=== PATIENT | female | born 1940 | race Caucasian/White ===

== ENCOUNTER 2017-09-08 09:57 | Outpatient (CLI) | payer MEDICARE ==
[~2017-09-08 09:57] MED LIST: BUPR100T13 PO; DOXA2TAB2 PO; ESCI20TA38 PO; GLIM1TAB46 PO; GLIM4TAB79 PO; LINA5TAB4 PO; LORA1TAB PO; LOSA1TAB41 PO; PANT-47 PO; SIMV20TA5 PO
[2017-09-08 10:51] LABS: ALBUMIN 3.4 G/DL (3.4-5.0); ANION GAP 11 (8-16); BLOOD UREA NITROGEN 17 MG/DL (7-18); CALCIUM 9.1 MG/DL (8.5-10.1); CHLORIDE 101 MMOL/L (99-107); CREATININE 1.13 MG/DL (0.40-0.90); GLUCOSE 284 MG/DL (70-104); SODIUM 137 MMOL/L (135-145); TOTAL CARBON DIOXIDE 25.2 MMOL/L (24-32); eGFR 47 ML/MIN
[2017-09-08 11:05] LABS: POTASSIUM 2.5 MMOL/L (3.5-5.1)
[2017-09-08] MEDS ORDERED: ONDA4TAB9 PO (18:22)
[2017-09-08] MEDS ORDERED: OXYC-145 PO (18:22)
== END 2017-09-08 23:59 | disposition home or self-care (01) ==
LOC: LAB 09:57
PROVIDERS: ATTEND Internal Medicine Gastroenterology
DX: R10.9 Unspecified abdominal pain (principal); I10 Essential (primary) hypertension; E11.9 Type 2 diabetes mellitus without complications; Z88.2 Allergy status to sulfonamides; Z88.5 Allergy status to narcotic agent
CPT/HCPCS: 36415; 80048

== ENCOUNTER 2017-09-08 14:36 | Emergency (ER) | payer MEDICARE ==
[~2017-09-08] VITALS: Ht 152.4 cm; Wt 58.6 kg
[2017-09-08] MEDS ORDERED: potassium Cl oral solution 20 MEQ/15 ML PO ONE (15:25)
[2017-09-08] MEDS ORDERED: normal saline 1000ML IV soln IVB ONE (15:25)
[2017-09-08] MEDS ORDERED: potassium Cl 20 mEq/100mL bag IV ONE (15:35)
[2017-09-08] MEDS: potassium 10mEq/100ml NS w/LIDOcaine (10mg/bag) IV SCH ×2 (15:46→16:40)
[2017-09-08] MEDS: diatr meglu/diatrizoate 30ml oral sol.-(3 dose) bottle PO SCH ×3 (15:48→17:21)
[2017-09-08 15:50] LABS: BASOPHILS % (AUTO) 0.5 % (0-1); EOSINOPHILS # (AUTO) 0.2 X10'3 (0-0.9); EOSINOPHILS % (AUTO) 2.9 % (0-6); HEMATOCRIT 31.5 % (35.0-45.0); HEMOGLOBIN 10.4 g/dl (12.0-16.0); LYMPHOCYTES # (AUTO) 1.7 X10'3 (1.1-4.8); LYMPHOCYTES % (AUTO) 24.6 % (21-51); MEAN CORPUSCULAR HEMOGLOBIN 26.6 PG (27.0-31.0); MEAN CORPUSCULAR HGB CONC 32.9 % (33.0-36.5); MEAN CORPUSCULAR VOLUME 80.8 FL (78-98); MONOCYTES # (AUTO) 0.7 X10'3 (0-0.9); MONOCYTES % (AUTO) 10.1 % (2-12); NEUTROPHILS # (AUTO) 4.2 X10'3 (1.8-7.7); NEUTROPHILS % (AUTO) 61.9 % (42-75); PLATELET COUNT 289 X10'3 (140-440); RED CELL DISTRIBUTION WIDTH 19.6 % (11.5-14.5); WHITE BLOOD COUNT 6.7 X10'3 (4.5-11.0)
[2017-09-08 16:01] LABS: ALANINE AMINOTRANSFERASE 197 U/L (12-78); ALBUMIN 3.6 G/DL (3.4-5.0); ALBUMIN/GLOBULIN RATIO 0.9 (1.1-1.5); ALKALINE PHOSPHATASE 526 IU/L (46-116); ANION GAP 11 (8-16); ASPARTATE AMINO TRANSFERASE 127 U/L (10-37); BLOOD UREA NITROGEN 22 MG/DL (7-18); BUN/CREATININE RATIO 16.4 (6.6-38.0); CALCIUM 9.5 MG/DL (8.5-10.1); CHLORIDE 101 MMOL/L (99-107); CREATININE 1.34 MG/DL (0.40-0.90); GLUCOSE 180 MG/DL (70-104); LIPASE 92 U/L (73-393); SODIUM 137 MMOL/L (135-145); TOTAL CARBON DIOXIDE 24.7 MMOL/L (24-32); TOTAL PROTEIN 7.7 G/DL (6.4-8.2); eGFR 38 ML/MIN
[2017-09-08 16:02] LABS: POTASSIUM 2.7 MMOL/L (3.5-5.1)
[2017-09-08 16:24] LABS: ANISOCYTOSIS 2+; BURR CELLS FEW; PLATELET ESTIMATE NORMAL; POLYCHROMASIA FEW; SCHISTOCYTES FEW
[2017-09-08 17:23] LABS: CLARITY,URINE CLOUDY (Clear); COLOR,URINE YELLOW (Yellow); GLUCOSE, URINE NEGATIVE (Neg); KETONES,URINE NEGATIVE (Neg); LEUKOCYTE ESTERASE ,URINE NEGATIVE (Neg); NITRITES, URINE NEGATIVE (Neg); OCCULT BLOOD,URINE NEGATIVE (Neg); PH,URINE 5.5 (4.8-8.0); PROTEIN,URINE NEGATIVE (Neg); UROBILINOGEN,URINE 0.2 E.U/dL (0.2-1.0)
[2017-09-08 17:24] LABS: UA COLLECTION TYPE CLN CATCH MIDSTREAM
[2017-09-08 17:30] LABS: MUCUS STRANDS MODERATE /LPF (Neg); SQUAMOUS EPITHELIAL CELL,UR MANY /LPF (FEW)
[2017-09-08 17:31] LABS: CAL OXALATE CRYSTALS 2+ /HPF (NEGATIVE); HYALINE CASTS >30 /LPF (NEGATIVE)
[2017-09-08 17:34] LABS: FINE GRANULAR CAST 0-3 /LPF (NEGATIVE); RENAL CELLS, URINE FEW /HPF; TRANSITIONAL EPI CELLS,URINE FEW /HPF
[2017-09-08 17:35] LABS: BACTERIA,URINE 1+ /HPF (Neg); RBC,URINE 0-2 /HPF (0-2); WBC,URINE 0-4 /HPF (0-4)
[2017-09-08] MEDS ORDERED: OXYC-145 PO (18:22)
[2017-09-08] MEDS ORDERED: ONDA4TAB9 PO (18:22)
[2017-09-08] MEDS ORDERED: morphine 4 MG/ML inj SYRINge IV ONE (18:30)
[2017-09-08] MEDS ORDERED: ketorolac trometh. 30mg/ml inj. IV ONE (18:30)
[2017-09-08] MEDS ORDERED: ondansetron/PF 4mg/2ml inj IV ONE (18:30)
[2017-09-08 18:58] VITALS: BP 180/74
== END 2017-09-08 19:07 | disposition home or self-care (01) ==
LOC: ER 14:37
DX: C25.9 Malignant neoplasm of pancreas, unspecified (principal); C78.7 Secondary malignant neoplasm of liver and intrahepatic bile duct; E87.6 Hypokalemia; K57.30 Diverticulosis of large intestine without perforation or abscess without bleeding; K44.9 Diaphragmatic hernia without obstruction or gangrene; I10 Essential (primary) hypertension; E11.9 Type 2 diabetes mellitus without complications; Z88.2 Allergy status to sulfonamides; Z88.5 Allergy status to narcotic agent; Z79.899 Other long term (current) drug therapy
CPT/HCPCS: 36415; 74177; 80053; 81001; 83690; 85025; 96365; 96366; 96375; 99285; J1885; J2270; J2405; J3480; J7030; Q9963

== ENCOUNTER 2017-09-09 08:00 | Outpatient (CLI) | payer MEDICARE ==
[~2017-09-09 08:00] MED LIST changes: +ONDA4TAB9 PO; +OXYC-145 PO; +iohexol 300mg/ml 100ml inj. ONE
== END 2017-09-09 23:59 | disposition home or self-care (01) ==
LOC: 64 CT 08:00
PROVIDERS: ATTEND Internal Medicine Gastroenterology
DX: R10.9 Unspecified abdominal pain (principal)
CPT/HCPCS: J7030; Q9967

== ENCOUNTER 2017-09-30 12:35 | Day surgery (SDC) | payer MEDICARE ==
[~2017-09-30] VITALS: Ht 152.4 cm; Wt 55.5 kg
[2017-09-30] VITALS (9 sets, daily range): BP systolic 139–173; BP diastolic 68–78
[~2017-09-30 12:35] MED LIST changes: -iohexol 300mg/ml 100ml inj. ONE
[2017-09-30] MEDS ORDERED: LOSA25TA96 PO (12:46)
[2017-09-30] MEDS ORDERED: PANT-47 PO (12:47)
[2017-09-30] MEDS ORDERED: meperidine/PF 100mg/ml syringe ONE (12:53)
[2017-09-30] MEDS ORDERED: fentaNYL/PF 50MCG/1 ML 2ML syringe ONE (12:53)
[2017-09-30] MEDS ORDERED: glucagon, human recombinant 1mg kit ONE (12:54)
[2017-09-30] MEDS ORDERED: LIDOcaine Viscous 15ml cup ONE (12:54)
[2017-09-30] MEDS ORDERED: levoFLOXACIN-Levaquin 500mg/D5 0 ML IV ONE (12:54)
[2017-09-30] MEDS ORDERED: diphenhydrAMINE 50 mg/ml inj ONE (12:54)
[2017-09-30] MEDS ORDERED: MIDAZolam 5mg/5ml vial ONE (12:54)
[2017-09-30] MEDS ORDERED: iohexol 300 MG/1 ML 50ml polymer ONE (12:55)
== END 2017-09-30 17:00 | disposition home or self-care (01) ==
LOC: GI LAB 12:35
PROVIDERS: ATTEND Internal Medicine Gastroenterology
DX: D49.0 Neoplasm of unspecified behavior of digestive system (principal); K83.8 Other specified diseases of biliary tract; E11.9 Type 2 diabetes mellitus without complications; I10 Essential (primary) hypertension; M19.90 Unspecified osteoarthritis, unspecified site; F32.9 Major depressive disorder, single episode, unspecified; E78.5 Hyperlipidemia, unspecified; Z79.82 Long term (current) use of aspirin; Z88.2 Allergy status to sulfonamides; Z88.5 Allergy status to narcotic agent; Z88.6 Allergy status to analgesic agent; Z85.828 Personal history of other malignant neoplasm of skin; Z85.07 Personal history of malignant neoplasm of pancreas; Z98.890 Other specified postprocedural states; Z79.899 Other long term (current) drug therapy; R17 Unspecified jaundice
CPT/HCPCS: 43260; 99153; G0500; J1610; J2250; J3010; J7030; Q9967; A4620; J1200; J1956; J2175

== ENCOUNTER 2017-10-14 08:50 | Day surgery (SDC) | payer MEDICARE ==
[~2017-10-14] VITALS: Ht 152.4 cm; Wt 55.0 kg
[~2017-10-14 08:50] MED LIST changes: -GLIM1TAB46 PO; -LOSA1TAB41 PO; +LOSA25TA96 PO; -ONDA4TAB9 PO; -OXYC-145 PO
[2017-10-14 09:58] LABS: INR 2.9 INR; PROTHROMBIN TIME 29.3 SECONDS (9.0-12.0)
[2017-10-14] MEDS ORDERED: normal saline 1000ml 1,000 ML IV PRN (10:05)
== END 2017-10-14 11:20 | disposition home or self-care (01) ==
LOC: RAD 08:50
PROVIDERS: ATTEND Radiology Diagnostic Radiology
DX: K82.4 Cholesterolosis of gallbladder (principal); Z53.8 Procedure and treatment not carried out for other reasons; K86.89 Other specified diseases of pancreas; C22.9 Malignant neoplasm of liver, not specified as primary or secondary; Z88.5 Allergy status to narcotic agent; Z88.2 Allergy status to sulfonamides; Z79.899 Other long term (current) drug therapy
CPT/HCPCS: 36415; 76700; 85610; J7030

== ENCOUNTER 2017-11-03 09:53 | Outpatient (CLI) | payer MEDICARE ==
[2017-11-03 10:11] LABS: ALANINE AMINOTRANSFERASE 109 U/L (12-78); ALBUMIN 2.4 G/DL (3.4-5.0); ALKALINE PHOSPHATASE 546 IU/L (46-116); ANION GAP 9 (8-16); BILIRUBIN,TOTAL 14.1 MG/DL (0.1-1.0); BLOOD UREA NITROGEN 42 MG/DL (7-18); BUN/CREATININE RATIO 17.5 (6.6-38.0); CALCIUM 8.5 MG/DL (8.5-10.1); CHLORIDE 79 MMOL/L (99-107); SODIUM 125 MMOL/L (135-145); TOTAL CARBON DIOXIDE 37.5 MMOL/L (24-32); eGFR 20 ML/MIN
[2017-11-03 10:12] LABS: ALBUMIN/GLOBULIN RATIO 0.7 (1.1-1.5); ASPARTATE AMINO TRANSFERASE 130 U/L (10-37); GLUCOSE 134 MG/DL (70-104)
[2017-11-03 10:27] LABS: POTASSIUM 2.8 MMOL/L (3.5-5.1)
[2017-11-03] MEDS ORDERED: POTA20TA19 PO (14:13)
== END 2017-11-03 23:59 | disposition home or self-care (01) ==
LOC: LAB SPEC 09:53
PROVIDERS: ATTEND Internal Medicine Hematology & Oncology
DX: C25.9 Malignant neoplasm of pancreas, unspecified (principal); R11.2 Nausea with vomiting, unspecified; G89.3 Neoplasm related pain (acute) (chronic); I10 Essential (primary) hypertension; E11.9 Type 2 diabetes mellitus without complications; Z90.710 Acquired absence of both cervix and uterus
CPT/HCPCS: 36415; 80053

== ENCOUNTER 2017-11-03 11:56 | Emergency (ER) | payer MEDICARE ==
[~2017-11-03] VITALS: Ht 152.4 cm; Wt 50.0 kg
[2017-11-03] MEDS ORDERED: normal saline 1000ML IV soln IVB ONE ×2 (12:30→14:10)
[2017-11-03] MEDS ORDERED: potassium Cl 20 mEq SR tablet PO ONE (12:30)
[2017-11-03 12:50] LABS: BASOPHILS % (AUTO) 0.1 % (0-1); EOSINOPHILS # (AUTO) 0.1 X10'3 (0-0.9); EOSINOPHILS % (AUTO) 0.8 % (0-6); HEMATOCRIT 29.5 % (35.0-45.0); HEMOGLOBIN 10.2 g/dl (12.0-16.0); LYMPHOCYTES # (AUTO) 1.4 X10'3 (1.1-4.8); LYMPHOCYTES % (AUTO) 14.2 % (21-51); MEAN CORPUSCULAR HEMOGLOBIN 28.9 PG (27.0-31.0); MEAN CORPUSCULAR HGB CONC 34.6 % (33.0-36.5); MEAN CORPUSCULAR VOLUME 83.6 FL (78-98); MEAN PLATELET VOLUME 8.1 FL (7.4-10.4); MONOCYTES # (AUTO) 0.4 X10'3 (0-0.9); MONOCYTES % (AUTO) 4.3 % (2-12); NEUTROPHILS # (AUTO) 7.7 X10'3 (1.8-7.7); NEUTROPHILS % (AUTO) 80.6 % (42-75); PLATELET COUNT 366 X10'3 (140-440); RED BLOOD COUNT 3.53 X10'6 (4.20-5.60); RED CELL DISTRIBUTION WIDTH 20.4 % (11.5-14.5); WHITE BLOOD COUNT 9.6 X10'3 (4.5-11.0)
[2017-11-03 13:03] LABS: ANISOCYTOSIS 2+; MICROCYTOSIS 1+; PLATELET ESTIMATE NORMAL
[2017-11-03 13:10] LABS: ALANINE AMINOTRANSFERASE 101 U/L (12-78); ALBUMIN 2.3 G/DL (3.4-5.0); ALKALINE PHOSPHATASE 496 IU/L (46-116); ANION GAP 8 (8-16); ASPARTATE AMINO TRANSFERASE 121 U/L (10-37); BLOOD UREA NITROGEN 44 MG/DL (7-18); BUN/CREATININE RATIO 16.5 (6.6-38.0); CALCIUM 8.8 MG/DL (8.5-10.1); CHLORIDE 80 MMOL/L (99-107); CREATININE 2.66 MG/DL (0.40-0.90); GLUCOSE 113 MG/DL (70-104); SODIUM 125 MMOL/L (135-145); TOTAL CARBON DIOXIDE 36.9 MMOL/L (24-32); eGFR 17 ML/MIN
[2017-11-03 13:11] LABS: ALBUMIN/GLOBULIN RATIO 0.5 (1.1-1.5); TOTAL PROTEIN 6.5 G/DL (6.4-8.2)
[2017-11-03 13:15] LABS: POTASSIUM 2.5 MMOL/L (3.5-5.1)
[2017-11-03] MEDS: potassium 10mEq/100ml NS w/LIDOcaine (10mg/bag) IV SCH ×2 (13:22→14:24)
[2017-11-03] MEDS ORDERED: POTA20TA19 PO (14:13)
[2017-11-03 14:19] LABS: MAGNESIUM 2.3 MG/DL (1.5-2.4)
[2017-11-03 15:53] VITALS: BP 141/81
== END 2017-11-03 15:55 | disposition home or self-care (01) ==
LOC: ER 11:57
DX: E87.6 Hypokalemia (principal); E86.0 Dehydration; I10 Essential (primary) hypertension; E11.9 Type 2 diabetes mellitus without complications; Z88.2 Allergy status to sulfonamides; Z88.5 Allergy status to narcotic agent; Z79.899 Other long term (current) drug therapy
CPT/HCPCS: 36415; 80053; 83735; 85025; 96365; 99284; J3480; J7030

== ENCOUNTER 2017-11-05 10:44 | Emergency (ER) | payer MEDICARE ==
[~2017-11-05] VITALS: Ht 152.4 cm; Wt 50.0 kg
[~2017-11-05 10:44] MED LIST changes: +POTA20TA19 PO
[2017-11-05] MEDS ORDERED: normal saline 1000ML IV soln IV ONE (11:30)
[2017-11-05] MEDS ORDERED: metoclopramide 5 mg/ml inj IV ONE (11:40)
[2017-11-05 12:16] LABS: BASOPHILS % (AUTO) 0 % (0-1); EOSINOPHILS % (AUTO) 0.2 % (0-6); HEMATOCRIT 30.1 % (35.0-45.0); HEMOGLOBIN 10.3 g/dl (12.0-16.0); LYMPHOCYTES # (AUTO) 0.7 X10'3 (1.1-4.8); LYMPHOCYTES % (AUTO) 8.9 % (21-51); MEAN CORPUSCULAR HGB CONC 34.2 % (33.0-36.5); MEAN CORPUSCULAR VOLUME 84.6 FL (78-98); MEAN PLATELET VOLUME 8.2 FL (7.4-10.4); MONOCYTES # (AUTO) 0.4 X10'3 (0-0.9); MONOCYTES % (AUTO) 5.5 % (2-12); NEUTROPHILS # (AUTO) 6.7 X10'3 (1.8-7.7); NEUTROPHILS % (AUTO) 85.4 % (42-75); PLATELET COUNT 404 X10'3 (140-440); RED BLOOD COUNT 3.56 X10'6 (4.20-5.60); RED CELL DISTRIBUTION WIDTH 20.2 % (11.5-14.5); WHITE BLOOD COUNT 7.8 X10'3 (4.5-11.0)
[2017-11-05 12:21] LABS: INR 3.6 INR; PARTIAL THROMBOPLASTIN TIME 44 SECONDS (22-32); PROTHROMBIN TIME 35.3 SECONDS (9.0-12.0)
[2017-11-05 12:27] LABS: ALANINE AMINOTRANSFERASE 96 U/L (12-78); ALBUMIN 2.3 G/DL (3.4-5.0); ALKALINE PHOSPHATASE 428 IU/L (46-116); ANION GAP 13 (8-16); ASPARTATE AMINO TRANSFERASE 99 U/L (10-37); BILIRUBIN,TOTAL 11.1 MG/DL (0.1-1.0); BLOOD UREA NITROGEN 41 MG/DL (7-18); BUN/CREATININE RATIO 27.2 (6.6-38.0); CALCIUM 8.7 MG/DL (8.5-10.1); CHLORIDE 81 MMOL/L (99-107); CREATININE 1.51 MG/DL (0.40-0.90); GLUCOSE 257 MG/DL (70-104); SODIUM 131 MMOL/L (135-145); TOTAL CARBON DIOXIDE 37.3 MMOL/L (24-32); eGFR 33 ML/MIN
[2017-11-05 12:28] LABS: ALBUMIN/GLOBULIN RATIO 0.5 (1.1-1.5); TOTAL PROTEIN 6.5 G/DL (6.4-8.2)
[2017-11-05] MEDS ORDERED: famotidine/PF 10 mg/ml inj IV ONE (12:30)
[2017-11-05] MEDS ORDERED: pantoprazole 40 MG vial IV ONE (12:30)
[2017-11-05] MEDS ORDERED: fentaNYL/PF 50MCG/1 ML 2ML syringe IV ONE ×2 (12:30→14:00)
[2017-11-05 12:32] LABS: POTASSIUM 2.8 MMOL/L (3.5-5.1)
[2017-11-05 12:50] LABS: MAGNESIUM 2.2 MG/DL (1.5-2.4)
[2017-11-05] MEDS: potassium 10mEq/100ml NS w/LIDOcaine (10mg/bag) IV SCH ×2 (12:51→14:22)
[2017-11-05] MEDS: magnesium 1gm/100ml D5W IVPB 100 ML IV SCH ×2 (12:51→14:19)
[2017-11-05] MEDS ORDERED: ONDA8TAB12 PO (13:11)
[2017-11-05] MEDS ORDERED: MORP-64 PO (13:11)
[2017-11-05 13:48] VITALS: BP 159/82
[2017-11-05] MEDS ORDERED: ondansetron/PF 4mg/2ml inj IV ONE (14:00)
[2017-11-05] MEDS ORDERED: OMEP20CA10 PO (15:20)
[2017-11-05] MEDS ORDERED: FAMO20TA44 PO (15:20)
[2017-11-05] MEDS ORDERED: ONDA4TAB9 SL (15:20)
[2017-11-05] MEDS ORDERED: PHE25R PR (15:20)
[2017-11-05] MEDS ORDERED: pantoprazole 40MG/NS 100ML BAG 100 ML IV SCH (16:00)
[2017-11-09 11:09] LABS: GASTRIC OCCULT BLOOD POSITIVE (Neg)
== END 2017-11-05 15:47 | disposition home or self-care (01) ==
LOC: ER 10:45
DX: K29.01 Acute gastritis with bleeding (principal); R74.0 Nonspecific elevation of levels of transaminase and lactic acid dehydrogenase [LDH]; E87.6 Hypokalemia; D64.9 Anemia, unspecified; D68.8 Other specified coagulation defects; I12.9 Hypertensive chronic kidney disease with stage 1 through stage 4 chronic kidney disease, or unspecified chronic kidney disease; N18.9 Chronic kidney disease, unspecified; E11.22 Type 2 diabetes mellitus with diabetic chronic kidney disease; Z88.2 Allergy status to sulfonamides; Z88.5 Allergy status to narcotic agent; Z79.899 Other long term (current) drug therapy; Z90.710 Acquired absence of both cervix and uterus
CPT/HCPCS: 36415; 71045; 80053; 82140; 82271; 83735; 84484; 85025; 85610; 85730; 86885; 86900; 86901; 93005; 96365; 96366; 96367; 96375; 96376; 99285; C9113; J2405; J2765; J3010; J3480; J3490; J7030